=== PATIENT | male | born 1970 ===

== ENCOUNTER 2016-08-16 09:40 | Emergency (ER) | payer BC ==
[~2016-08-16] VITALS: Ht 182.9 cm; Wt 75.0 kg
[2016-08-16 09:45] VITALS: TEMP 36.6; Ht 182.9 cm; Wt 75.0 kg
[2016-08-16] MEDS ORDERED: MULT-506 PO (10:09)
[2016-08-16] MEDS ORDERED: CHOL1TAB76 PO (10:10)
--- NOTE | 2016-08-16 10:20 | DIAGNOSTIC IMAGING REPORT ---
SINGLE VIEW CHEST CLINICAL HISTORY: Atypical chest pain. FINDINGS: An AP, portable, upright chest radiograph is compared to study dated 02/01/2008. The heart is top normal for projection. The mediastinal contour is within normal limits. There is mild elevation of left hemidiaphragm with minimal left basilar airspace opacities. The lungs are otherwise clear. No large pleural effusion or pneumothorax is seen. The bony thorax is grossly intact. IMPRESSION: 1. There is mild elevation of the left hemidiaphragm with left basilar airspace opacities. This likely represents atelectasis. Correlated clinically for evidence of an infectious/inflammatory pneumonitis. 2. The lungs are otherwise clear. No pleural effusion is seen Electronically signed by: José Miguel Cardozo M.D. 08/16/2016 10:19 AM Dictated Date/Time: 08/16/2016 10:18 AM
[2016-08-16 10:39] LABS: MEAN CORPUSCULAR HGB CONC 32.7 g/dl (32-36)
[2016-08-16 10:44] LABS: HEMATOCRIT 36.1 % (42-52); MEAN CELL VOLUME 61.6 fL (80-100); MEAN CORPUSCULAR HEMOGLOBIN 20.1 pg (25-34); RED BLOOD COUNT 5.86 M/uL (4.7-6.1); WHITE BLOOD COUNT 5.83 K/uL (4.8-10.8)
[2016-08-16 10:47] LABS: INR 1.2 (0.9-1.1); PARTIAL THROMBOPLASTIN RATIO 1.1; PROTHROMBIN TIME (PATIENT) 12.4 SECONDS (9.0-12.0)
[2016-08-16 10:56] LABS: PLATELET COUNT 141 K/uL (130-400)
[2016-08-16 10:57] LABS: ALT/SGPT 34 U/L (12-78); BLOOD UREA NITROGEN 12 mg/dl (7-18); BUN/CREATININE RATIO 12.5 (10-20); CALCIUM 9.1 mg/dl (8.5-10.1); CARBON DIOXIDE 29 mmol/L (21-32); CHLORIDE 106 mmol/L (98-107); CREATININE 0.96 mg/dl (0.60-1.40); GLUCOSE 89 mg/dl (70-99); PLT ESTIMATE DECREASED; POTASSIUM 3.7 mmol/L (3.5-5.1); SODIUM 142 mmol/L (136-145)
[2016-08-16] MEDS ORDERED: MoRPHine SULFATE 4 MG/ML 1 ML CARP\\VIAL IV STA (11:00)
[2016-08-16] MEDS ORDERED: ONDANSETRON INJ 2 MG/ML 2 ML VIAL IV STA (11:00)
[2016-08-16] MEDS ORDERED: ASPIRIN 324 MG CHEW PO STA (11:00)
[2016-08-16 11:01] LABS: ALB/GLOB RATIO 1.3 (0.9-2); ALKALINE PHOSPHATASE 95 U/L (45-117); AST/SGOT 21 U/L (15-37)
--- NOTE | 2016-08-16 11:07 | EMERGENCY ROOM VISIT NOTE ---
History First contact with patient: 10:50 Chief Complaint: CHEST PAIN Stated Complaint: HP,DISCOMFORT IN CHEST&LEFT ARM Nursing Triage Summary: Left sided chest pain radiating to the left arm. History of Present Illness The patient is a 45 year old male who presents to the Emergency Room via private vehicle accompanied by female with complaints of "high blood pressure, discomfort in chest and left arm". The patient states that he and his were out yesterday, and returned home around noon time and while walking from the car back to the house he felt very dizzy. He states that they went into the house and they checked his blood pressure and was found to be 150/110. He states that he started to panic some, and repeated this check 2-3 times in the evening. He notes it continued to increase. He states that it was close to 170. He states that he then woke up this morning and had pressure in the left anterior chest that radiated in the left arm. He states that it feels like a pressure in nature. It is worse with movement and exertion. He denies any shortness of breath, history of high blood pressure, history of blood clots, smoking, recent broken bones. 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 He denies any dizziness at this time. Review of Systems A complete 10-point Review of Systems was discussed with the patient, with pertinent positives and negatives listed in the History of Present Illness. All remaining Review of Systems questions can be considered negative unless otherwise specified. Past Medical/Surgical History Thalassemia beta Family History High blood pressure Social History Smoking Status: Never Smoker Social History: Patient lives at home with and children. Current/Historical Medications Scheduled Cholecalciferol (D 1999), 2,000 PO DAILY Multivitamin (Multivitamin), 1 TAB PO DAILY Allergies Coded Allergies: No Known Allergies (Unverified , 08/16/16) Physical Exam Vital Signs Date Time Temp Pulse Resp B/P Pulse Ox O2 Delivery O2 Flow Rate FiO2 08/16/16 17:47 78 18 138/96 98 08/16/16 15:20 78 18 136/99 97 Room Air 08/16/16 13:52 67 08/16/16 12:05 76 16 130/97 97 Room Air 08/16/16 10:03 97 Room Air 08/16/16 10:02 77 08/16/16 09:57 98 Room Air 08/16/16 09:45 36.6 81 16 148/88 98 Room Air Physical Exam VITAL SIGNS - Vital signs and nursing notes were reviewed. GENERAL -45-year-old male appearing his stated age who is in no acute distress. He is nontoxic in appearance and is nondiaphoretic. Communicates well with provider and answers questions appropriately. SKIN - Without rashes. No petechial rashes. HEAD - NC/AT. EYES - PERRL with EOMI bilaterally. Sclera anicteric. Palpebral conjunctiva pink and moist with no injection noted. EARS - No deformities of external structures noted on gross examination bilaterally. No pain elicited with palpation of the tragus bilaterally. External auditory canals without discharge or otorrhea. Tympanic membranes pearly castro without retraction or bulging. No fluid or purulent material visualized behind the TM. Handle of malleus, umbo, cone of light, pars tensa/ flaccid all easily visualized. NOSE - Midline and without cyanosis. No epistaxis or purulent drainage noted. Septum midline without deviation or septal hematoma noted. MOUTH/OROPHARYNX - Without perioral cyanosis. Buccal mucosa pink and moist and without leukoplakia. Tongue midline with equal elevation of palate bilaterally. No tonsillar hypertrophy, erythema, or exudates noted. Good dentition noted. NECK - Neck with FROM. Supple to palpation. No lymphadenopathy noted. No nuchal rigidity. LUNGS - Chest wall symmetric without accessory muscle use, intercostals retractions, or central cyanosis. Normal vesicular breath sounds CTA B/L. No wheezes, rales, or rhonchi appreciated. CARDIAC - RRR with S1/S2. No murmur, rubs, or gallops appreciated. The left anterior chest discomfort, just superior to the level of the nipple is slightly reproducible with palpation. ABDOMEN - Abdominal contour without pulsations or visible masses. BS normoactive all four quadrants. No tenderness, palpable masses, hepatosplenomegaly, or ascites noted. EXTREMITIES - No clubbing or peripheral cyanosis. No pretibial edema present. +5 /5 strength noted in UE/LE bilaterally. The discomfort noted in the left arm was not reproducible with palpation. NEUROLOGIC - Cranial nerves II through XII grossly intact. Sensory intact to light touch throughout. PSYCH - Pt is very pleasant and interacts well with examiner. Medical Decision & Procedures ER Provider Diagnostic Interpretation: SINGLE VIEW CHEST CLINICAL HISTORY: Atypical chest pain. FINDINGS: An AP, portable, upright chest radiograph is compared to study dated 02/01/2008. The heart is top normal for projection. The mediastinal contour is within normal limits. There is mild elevation of left hemidiaphragm with minimal left basilar airspace opacities. The lungs are otherwise clear. No large pleural effusion or pneumothorax is seen. The bony thorax is grossly intact. IMPRESSION: 1. There is mild elevation of the left hemidiaphragm with left basilar airspace opacities. This likely represents atelectasis. Correlated clinically for evidence of an infectious/inflammatory pneumonitis. 2. The lungs are otherwise clear. No pleural effusion is seen Electronically signed by: José Miguel Cardozo M.D. 08/16/2016 10:19 AM Dictated Date/Time: 08/16/2016 10:18 AM EXERCISE STRESS TEST: Interpretation Summary * Name: NONI BAZAN Study Date: 08/16/2016 03:28 PM BP: 126/95 mmHg * Patient Location: [facility] HR: 65 * : 1970 (M/d/yyyy) Gender: Male Height: 72 in * Age: 45 yrs Ethnicity: IA Weight: 165 lb * Ordering Physician: Omi Borrero * Performed By: Katlyn Abarca * * Reason For Study: CHEST PAIN * BSA: 2.0 m2 * -- Conclusions -- * Left ventricular systolic function is normal. * Right ventricular systolic pressure is normal. * Grade I diastolic dysfunction, (abnormal relaxation pattern). * Normal exercise echocardiogram without evidence of inducible ischemia. Procedure Details * ECHOEX, CPT #[id number] * ECHO DOPPLER, CPT #[id number] * ECHO COLOR FLOW, CPT #[id number] * A contrast injection of Definity was performed to improve assessment of LV function. * Contrast was injected into an intravenous site in the right arm. * One vial of Definity ultrasound contrast was diluted in normal saline to a total volume of 10 ml. A total of '4' ml of solution was administered during imaging. * Lot # [id number] of Definity utilized for procedure. * Expiration date 09/07. * The attending nurse who injected the contrast agent was ALEKSANDAR FLANAGAN RN. Left Ventricle * The left ventricle is normal in size. * There is normal left ventricular wall thickness. * Ejection Fraction = >70 %. * Left ventricular systolic function is normal. * Grade I diastolic dysfunction, (abnormal relaxation pattern). * The left ventricular wall motion is normal. Right Ventricle * The right ventricle is normal in size and function. Atria * The left atrial size is normal. * Right atrial size is normal. Mitral Valve * The mitral valve anatomy is normal. * There is no mitral regurgitation noted. Tricuspid Valve * The tricuspid valve anatomy is normal. * There is trace tricuspid regurgitation. * Right ventricular systolic pressure is normal. Aortic Valve * The aortic valve is normal in structure and function. * No hemodynamically significant valvular aortic stenosis. * There is no significant aortic regurgitation. Great Vessels * The aortic root and proximal ascending aorta are normal sized. Pericardium * There is no pericardial effusion. Stress Parameters * The stress portion of this study was personally supervised by the undersigned interpreting physician. * Rest heart rate was '65' BPM. * Rest blood pressure was '126/95' * Maximum heart rate achieved was 160 bpm. * Maximum heart rate was 92 % of maximum age-predicted heart rate. * Maximum blood pressure was '156/86' * Total exercise time was '6:50' * Maximum exercise MET level achieved was '10.1' METS * Maximum treadmill speed was '3.40' miles per hour. * Maximum treadmill elevation was '14.20'% grade. * Exercise was terminated due to 'target heart rate achieved.' * Normal blood pressure response to exercise. * No symptoms during exercise. Left Ventricular Findings with Stress * Normal resting EKG without changes during exercise. Normal baseline echocardiogram weithout inducible wall motion abnormalities. Hussein treadmill score: 9 (low risk) No symptoms Normal BP response to exercise Laboratory Results 08/16/16 10:27 08/16/16 10:27 Test 08/16/16 10:27 08/16/16 15:07 Red Blood Count 5.86 M/uL (4.7-6.1) Mean Corpuscular Volume 61.6 fL (80-100) Mean Corpuscular Hemoglobin 20.1 pg (25-34) Mean Corpuscular Hemoglobin Concent 32.7 g/dl (32-36) RDW Standard Deviation 36.2 fL (36.4-46.3) RDW Coefficient of Variation 17.2 % (11.5-14.5) Platelet Estimate DECREASED Prothrombin Time 12.4 SECONDS (9.0-12.0) Prothromb Time International Ratio 1.2 (0.9-1.1) Activated Partial Thromboplast Time 27.5 SECONDS (21.0-31.0) Partial Thromboplastin Ratio 1.1 Anion Gap 7.0 mmol/L (3-11) Est Creatinine Clear Calc Drug Dose 100.9 ml/min Estimated GFR () 108.7 Estimated GFR (Non- 93.8 BUN/Creatinine Ratio 12.5 (10-20) Calcium Level 9.1 mg/dl (8.5-10.1) Total Bilirubin 0.9 mg/dl (0.2-1) Aspartate Amino Transf (AST/SGOT) 21 U/L (15-37) Alanine Aminotransferase (ALT/SGPT) 34 U/L (12-78) Alkaline Phosphatase 95 U/L (45-117) Total Creatine Kinase 58 U/L (39-308) Creatine Kinase MB < 0.5 ng/ml (0.5-3.6) Creatine Kinase MB Ratio (0-3.0) Total Protein 7.3 gm/dl (6.4-8.2) Albumin 4.1 gm/dl (3.4-5.0) Globulin 3.2 gm/dl (2.5-4.0) Albumin/Globulin Ratio 1.3 (0.9-2) Bedside Troponin I 0.000 ng/ml (0-0.045) Medications Administered Medications (Trade) Dose Ordered Sig/Bindu Route Start Time Stop Time Status Last Admin Dose Admin Aspirin (Aspirin Chew) 324 mg NOW STAT PO 08/16/16 11:00 08/16/16 11:02 DC 08/16/16 11:00 324 MG Morphine Sulfate (MoRPHine SULFATE INJ) 4 mg NOW STAT IV 08/16/16 11:00 08/16/16 11:02 DC 08/16/16 11:00 4 MG Ondansetron HCl (Zofran Inj) 4 mg NOW STAT IV 08/16/16 11:00 08/16/16 11:02 DC 08/16/16 11:00 4 MG Medical Decision Patient was seen and evaluated as above. Prior to seeing the patient the ED protocol had already performed an EKG, CBC, CMP, PTT, prothrombin time, point-of -care troponin, CK-MB, chest 1 view portable, apply monitor, start oxygen, pulse ox, lab collection and IV access. After obtaining a thorough history and physical examination I additionally added 324mg of aspirin, 4 mg of morphine and 4 mg of Zofran. Patient presented with chest pain in the left anterior chest that radiates to the left arm. The PERC rule was utilized and the patient was found to have 0 risk factors for pulmonary embolism. He is not short of breath nor dyspneic. He is not hypoxic. Troponin was found to be 0 and then repeated again and also found to be 0. Because of the patient's last onset of pain around 9 AM 6 hours was waited for the last troponin which was pulled at 3 PM and found to be 0. I did discuss the case with the construction framer older worker specialist, and spoke with Dr. Weiss, at 12:40 PM. We discussed the patient case and I requested a stress test with echo. This was granted. After the third negative troponin, 6 hours post onset of chest pain stress test was initiated. I was called with the results by Dr. Weiss, and the results were found to be excellent. I informed the patient upon these results and he seemed very happy. He is to follow-up in the outpatient setting with his family doctor and cardiology. I decided not suspect any underlying emergent cause and the patient states that he felt great prior to discharge and was not experiencing any pain. He was educated upon worrisome symptoms which to return , had questions prior to discharge, and was discharged home in good condition. It is important to note that the patient's chest x-ray did reveal atelectasis versus small inflammatory process. Clinically I do not believe that this is present as is CBC reveals no leukocytosis, and clinically he does not appear to have pneumonia. He has an anemia which the patient states is chronic. He has thalassemia beta. INR slightly elevated at 1.2. CMP reveals no electrolyte abnormality, he has normal kidney function, normal liver function, and again troponin negative 3. In the evaluation and treatment of this patient the following differential diagnoses were entertained: ACS, SD, PE, costochondritis, pneumonia, pneumothorax, pericarditis, among others. Impression Primary Impression: Non-cardiac chest pain Additional Impression: Anemia Departure Information Dispostion Home / Self-Care Condition GOOD Referrals Jeremiah Melendrez M.D. (PCP) Ted Weiss MD Patient Instructions My [facility] Additional Instructions You were seen in the emergency department for chest pain. Results of your heart tests looked excellent. It is recommended you follow-up with your family doctor for repeat of your blood work. You were found to be anemic, your INR was 1.2. You were provided the number for older worker specialist to follow-up in the outpatient setting. This is Dr. Weiss As we discussed you're chest x-ray showed questionable small pneumonia which I do not suspect at this time. If you develop fevers, chills, cough please return immediately. Please return to the emergency department with any new/concerning symptoms. Problem Qualifiers
[2016-08-16 17:47] VITALS: BP 138/96; PULSE 78; O2SAT 98
--- NOTE | 2016-08-16 18:16 | EXERCISE STRESS ECHO ---
*NOTICE TO RECEIVING [employer] This information is strictly Confidential and protected under [place] law. [place] law prohibits you from making any further disclosure of this information unless further disclosure is expressly permitted by the written consent of the person to whom it pertains or is authorized by law. A general authorization for the release of medical or other information is not sufficient for this purpose. Hospital accepts no responsibility if the information is made available to any other person, INCLUDING THE PATIENT. Interpretation Summary * Name: NONI BAZAN Study Date: 08/16/2016 03:28 PM BP: 126/95 mmHg * Patient Location: [facility] HR: 65 * : 1970 (M/d/yyyy) Gender: Male Height: 72 in * Age: 45 yrs Ethnicity: NM Weight: 165 lb * Ordering Physician: Omi Borrero * Performed By: Katlyn Abarca * * Reason For Study: CHEST PAIN * BSA: 2.0 m2 * -- Conclusions -- * Left ventricular systolic function is normal. * Right ventricular systolic pressure is normal. * Grade I diastolic dysfunction, (abnormal relaxation pattern). * Normal exercise echocardiogram without evidence of inducible ischemia. Procedure Details * ECHOEX, CPT #[id number] * ECHO DOPPLER, CPT #[id number] * ECHO COLOR FLOW, CPT #[id number] * A contrast injection of Definity was performed to improve assessment of LV function. * Contrast was injected into an intravenous site in the right arm. * One vial of Definity ultrasound contrast was diluted in normal saline to a total volume of 10 ml. A total of '4' ml of solution was administered during imaging. * Lot # [id number] of Definity utilized for procedure. * Expiration date 09/07. * The attending nurse who injected the contrast agent was ALEKSANDAR FLANAGAN RN. Left Ventricle * The left ventricle is normal in size. * There is normal left ventricular wall thickness. * Ejection Fraction = >70 %. * Left ventricular systolic function is normal. * Grade I diastolic dysfunction, (abnormal relaxation pattern). * The left ventricular wall motion is normal. Right Ventricle * The right ventricle is normal in size and function. Atria * The left atrial size is normal. * Right atrial size is normal. Mitral Valve * The mitral valve anatomy is normal. * There is no mitral regurgitation noted. Tricuspid Valve * The tricuspid valve anatomy is normal. * There is trace tricuspid regurgitation. * Right ventricular systolic pressure is normal. Aortic Valve * The aortic valve is normal in structure and function. * No hemodynamically significant valvular aortic stenosis. * There is no significant aortic regurgitation. Great Vessels * The aortic root and proximal ascending aorta are normal sized. Pericardium * There is no pericardial effusion. Stress Parameters * The stress portion of this study was personally supervised by the undersigned interpreting physician. * Rest heart rate was '65' BPM. * Rest blood pressure was '126/95' * Maximum heart rate achieved was 160 bpm. * Maximum heart rate was 92 % of maximum age-predicted heart rate. * Maximum blood pressure was '156/86' * Total exercise time was '6:50' * Maximum exercise MET level achieved was '10.1' METS * Maximum treadmill speed was '3.40' miles per hour. * Maximum treadmill elevation was '14.20'% grade. * Exercise was terminated due to 'target heart rate achieved.' * Normal blood pressure response to exercise. * No symptoms during exercise. Left Ventricular Findings with Stress * Normal resting EKG without changes during exercise. Normal baseline echocardiogram weithout inducible wall motion abnormalities. Hussein treadmill score: 9 (low risk) No symptoms Normal BP response to exercise MMode 2D Measurements and Calculations IVSd 1.3 cm IVSs 1.5 cm LVIDd 3.9 cm LVIDs 2.6 cm LVPWd 0.78 cm LVPWs 1.7 cm IVS/LVPW 1.7 FS 34.6 % EDV(Teich) 66.7 ml ESV(Teich) 23.7 ml EF(Teich) 64.4 % EDV(cubed) 60.2 ml ESV(cubed) 16.8 ml EF(cubed) 72.1 % % IVS thick 16.6 % % LVPW thick 116.2 % LV mass(C)d 131.5 grams LV mass(C)dI 67.0 grams/m\S\2 LV mass(C)s 147.4 grams LV mass(C)sI 75.1 grams/m\S\2 CO(Teich) 2.9 l/min CI(Teich) 1.5 l/min/m\S\2 SV(Teich) 43.0 ml SI(Teich) 21.9 ml/m\S\2 CO(cubed) 2.9 l/min CI(cubed) 1.5 l/min/m\S\2 SV(cubed) 43.4 ml SI(cubed) 22.1 ml/m\S\2 ACS 0.96 cm LA dimension 3.1 cm asc Aorta Diam 4.1 cm LVOT diam 2.3 cm LVOT area 4.3 cm\S\2 LVAd ap4 33.0 cm\S\2 LVLd ap4 8.8 cm EDV(MOD-sp4) 106.0 ml LVAs ap4 14.6 cm\S\2 LVLs ap4 6.5 cm ESV(MOD-sp4) 29.3 ml EF(MOD-sp4) 72.4 % LVAd ap2 22.4 cm\S\2 LVLd ap2 7.0 cm EDV(MOD-sp2) 60.6 ml LVAs ap2 10.3 cm\S\2 LVLs ap2 5.2 cm ESV(MOD-sp2) 18.2 ml EF(MOD-sp2) 70.0 % CO(MOD-sp4) 5.2 l/min CI(MOD-sp4) 2.7 l/min/m\S\2 SV(MOD-sp4) 76.7 ml SI(MOD-sp4) 39.1 ml/m\S\2 CO(MOD-sp2) 2.9 l/min CI(MOD-sp2) 1.5 l/min/m\S\2 SV(MOD-sp2) 42.4 ml SI(MOD-sp2) 21.6 ml/m\S\2 Doppler Measurements and Calculations MV E max marilee 62.5 cm/sec MV A max marilee 76.4 cm/sec MV E/A 0.82 MV dec time 0.21 sec Ao V2 max 94.6 cm/sec Ao max PG 3.6 mmHg Ao max PG (full) 0.45 mmHg MELISSA(V,A) 4.0 cm\S\2 MELISSA(V,D) 4.0 cm\S\2 LV V1 max PG 3.1 mmHg LV V1 max 88.4 cm/sec PA V2 max 58.3 cm/sec PA max PG 1.4 mmHg TR max marilee 183.3 cm/sec
== END 2016-08-16 17:35 | disposition home or self-care (01) ==
LOC: C.EDB 09:42 → C.EDA 17:35
DX: R07.89 Other chest pain (principal); D56.1 Beta thalassemia; Z82.49 Family history of ischemic heart disease and other diseases of the circulatory system

== ENCOUNTER → 2016-10-05 | Outpatient (CLI) | payer BC ==
[~2016-10-05] MED LIST: CHOL1TAB76 PO; MULT-506 PO
--- NOTE | 2016-10-05 11:14 | DIAGNOSTIC IMAGING REPORT ---
TWO VIEW CHEST CLINICAL HISTORY: Hypertension. FINDINGS: PA and lateral chest radiographs are compared to study dated 08/16/2016. The heart is top normal for projection. The mediastinal contour is within normal limits. The lungs and pleural spaces are clear. There is no pneumothorax. The bony thorax appears intact. IMPRESSION: No active disease in the chest. Electronically signed by: José Miguel Cardozo M.D. 10/05/2016 11:13 AM Dictated Date/Time: 10/05/2016 11:12 AM
== END | disposition home or self-care (01) ==
LOC: C.RAD 10:49
PROVIDERS: ATTEND Family Medicine
DX: I10 Essential (primary) hypertension (principal)